=== PATIENT | female | born 1990 | race African-American/Black ===

== ENCOUNTER → 2023-09-06 09:41 | Outpatient (REF) | payer OTHER, SELFPAY ==
[2023-09-06 11:03] LABS: Hematocrit 33.4 % (37.0-47.0); Hemoglobin 10.5 g/dL (12.0-16.0); Mean Corp Hgb Conc. 31.4 g/dL (33.0-37.0); Mean Corpuscular Hgb 20.5 pg (27.0-31.0); Mean Corpuscular Volume 65.1 fL (81.0-99.0); Red Blood Cell Count 5.13 10^6/uL (4.20-5.40); Red Cell Dist. Width 17.2 % (11.5-14.5); White Blood Cell Count 4.9 10^3/uL (4.8-10.8)
[2023-09-06 11:20] LABS: ALT (SGPT) 19 U/L (0-35); AST (SGOT) 25 U/L (14-36); Albumin 4.4 g/dl (3.5-5.0); Alkaline Phosphatase 59 U/L (38-126); Blood Urea Nitrogen 9 mg/dl (7-17); Calcium 9.2 mg/dl (8.4-10.2); Carbon Dioxide 22 mmol/L (22-30); Chloride 108 mmol/L (98-107); Glucose 83 mg/dl (70-99); Potassium 4.3 mmol/L (3.5-5.1); Sodium 137 mmol/L (135-145); Total Bilirubin 0.5 mg/dl (0.2-1.3); Total Protein 8.1 g/dl (6.3-8.2); eGFR > 60.00
[2023-09-06 11:50] LABS: TSH Reflex To Free T4 1.01 uIU/ml (0.47-4.68)
[2023-09-06 12:08] LABS: Vitamin B12 659 pg/ml (239-931)
[2023-09-08 16:28] LABS: Quantiferon Mitogen minus NIL 8.89 IU/mL; Quantiferon NIL 0.05 IU/mL; Quantiferon Plus TB1 minus NIL 1.27 IU/mL (0.00-0.34); Quantiferon Plus TB2 minus NIL 0.78 IU/mL (0.00-0.34); Quantiferon TB Gold Plus Positive (Negative)
== END ==
LOC: CLINIC 09:41
PROVIDERS: ATTENDING PHYSICIAN Nurse Practitioner Adult Health
DX: Z00.00 Encounter for general adult medical examination without abnormal findings (principal)
CPT/HCPCS: 36415; 80053; 82607; 84443; 85027; 86480

== ENCOUNTER → 2023-09-13 09:51 | Outpatient (REF) | payer OTHER, SELFPAY | LOC: CLINIC 09:51 | PROVIDERS: ATTENDING PHYSICIAN Nurse Practitioner Adult Health | DX: R76.12 Nonspecific reaction to cell mediated immunity measurement of gamma interferon antigen response without active tuberculosis (principal) | CPT/HCPCS: 71046 ==

== ENCOUNTER 2025-05-28 11:10 | Emergency (ER) | payer OTHER, SELFPAY ==
[2025-05-28 11:19] VITALS: BP 120/89
--- NOTE | 2025-05-28 12:27 | ED.GENMED ---
History of Present Illness
<Radha Thapa PA-C - Last Filed: 05/28/25 20:15>
General
Chief Complaint: Dizziness
Source: patient
Exam Limitations: none
Time Seen by Provider: 05/28/25 12:13
History of Present Illness
History of Present Illness:
34yoF with no significant past medical history presenting with her for evaluation of dizziness. Symptoms began about 3 days ago. She drink cocktails and beer for the which is unusual for her. She developed dizziness
Wednesday night which she describes as feeling like the room is spinning. Symptoms are worse with standing. She also reports nausea but has not vomited. She noticed that both of her legs and face appeared swollen. She reports a pounding in her left
ear which sounds like drums. She denies any chest pain or shortness of breath.
Phy Exam
<Radha Thapa PA-C - Last Filed: 05/28/25 20:15>
General Physical Exam
General Presentation: well appearing and no apparent distress
General age: appears stated age
General Skin: warm and dry
General Habitus: normal
General Mental: alert
ENT Exam
ENT Exam: TM's normal and normocephalic
Eye Exam
Eye Exam: PERRL, EOMI and conjunctiva normal
Cardiovascular Exam
Cardiovascular Exam: regular rate/rhythm, no murmur and other (1+ pitting edema in bilateral lower extremities)
Pulmonary Exam
Pulmonary Exam: lungs clear, no respiratory distress, no rales, no crackles, no rhonchi and no wheezing
Neurological Exam
Neurological Exam: alert
[place] Coma Scale
Eye Opening: Spontaneous
Verbal Response: Oriented
Motor Response: Obeys Commands
GCS Total Score: 15
Skin Exam
Skin Exam: normal color and warm/dry
Psychiatric Exam
Psychiatric Exam: normal mood/affect
Course
<Radha Thapa PA-C - Last Filed: 05/28/25 20:15>
Orders/Labs/Results
Orders:
Orders
05/28/25 12:25
Venous Doppler Lwr Ext Bilat [US Periph Venous LOWER Ext Gael] Urgent
Comment:
Reason For Exam: bilateral leg swelling
05/28/25 12:26
Electrocardiogram (*1) Urgent
Reason for Study: Vertigo / Dizzy
CT Head W/o Iv Contrast Urgent
Comment:
Reason For Exam: dizziness
EKG- Treatment ONCE
Test Result ONCE
CR Chest - 2 Views Urgent
Comment:
Reason For Exam: bilateral leg swelling
05/28/25 12:49
Complete Blood Count/With Diff Urgent
Comprehensive Metabolic Panel Urgent
HCG, Serum Qualitative Screen Urgent
NT-proBNP Urgent
Troponin I Urgent
05/28/25 15:13
Urinalysis Reflex To Culture Urgent
Date Specimen was Collected: 05/28/25
Time Specimen was Collected: 14:45
Urine Microscopic Reflex Cult Urgent
Urine Culture Urgent
ZAMZAM Source: U
Specimen Description:
Obtained by: Random
Date Specimen was Collected: 05/28/25
Time Specimen was Collected: 14:45
05/28/25 15:22
Echo 2D MMode Color/Doppler Urgent
Reason for Study: cardiomegaly, leg swelling
Cardiology Consult: Ria Segura
Abnormal Lab Results
05/28/25 05/28/25
12:49 15:13
Hgb 8.8 L g/dL
(12.0-16.0)
Hct 29.2 L %
(37.0-47.0)
MCV 61.7 L fL
(81.0-99.0)
MCH 18.6 L pg
(27.0-31.0)
MCHC 30.1 L g/dL
(33.0-37.0)
RDW 17.6 H %
(11.5-14.5)
Absolute Monos (auto) 1.0 H 10^3/uL
(0.1-0.6)
Monocytes % 15.3 H %
(1.7-9.3)
Creatinine 0.5 L mg/dL
(0.6-1.0)
Urine Ketones 2+ A
(Negative)
Urine Nitrite (Reflex) Positive A
(Negative)
Leukocyte Esterase Rfl 1+ A
(Negative)
Urine RBC 3-6 A /HPF
(0-2)
Urine WBC (Reflex) 16-20 A /HPF
(0-5)
Urine Bacteria (Reflex) Moderate A
(Negative)
Urine Albumin (Reflex) 1+ A
(Neg - Trace)
05/28/25 12:49
05/28/25 12:49
Vital Signs
Initial and Last Documented VS:
Initial Vital Signs
Temp Pulse Resp BP Pulse Ox
98.4 F 102 18 120/89 99
05/28/25 11:19 05/28/25 11:19 05/28/25 11:19 05/28/25 11:19 05/28/25 11:19
Last Documented Vital Signs
Temp Pulse Resp BP Pulse Ox
98.4 F 102 18 119/62 100
05/28/25 11:19 05/28/25 11:19 05/28/25 11:19 05/28/25 14:25 05/28/25 14:45
<Hollis Black, DO - Last Filed: 05/28/25 15:01>
Orders/Labs/Results
Orders:
Orders
05/28/25 12:25
Venous Doppler Lwr Ext Bilat [US Periph Venous LOWER Ext Gael] Urgent
Comment:
Reason For Exam: bilateral leg swelling
05/28/25 12:26
Electrocardiogram (*1) Urgent
Reason for Study: Vertigo / Dizzy
CT Head W/o Iv Contrast Urgent
Comment:
Reason For Exam: dizziness
EKG- Treatment ONCE
Test Result ONCE
CR Chest - 2 Views Urgent
Comment:
Reason For Exam: bilateral leg swelling
05/28/25 12:49
Complete Blood Count/With Diff Urgent
Comprehensive Metabolic Panel Urgent
HCG, Serum Qualitative Screen Urgent
NT-proBNP Urgent
Troponin I Urgent
05/28/25 15:13
Urinalysis Reflex To Culture Urgent
Date Specimen was Collected: 05/28/25
Time Specimen was Collected: 14:45
Urine Microscopic Reflex Cult Urgent
Urine Culture Urgent
ZAMZAM Source: U
Specimen Description:
Obtained by: Random
Date Specimen was Collected: 05/28/25
Time Specimen was Collected: 14:45
05/28/25 15:22
Echo 2D MMode Color/Doppler Urgent
Reason for Study: cardiomegaly, leg swelling
Cardiology Consult: Ria Segura
Abnormal Lab Results
05/28/25 05/28/25
12:49 15:13
Hgb 8.8 L g/dL
(12.0-16.0)
Hct 29.2 L %
(37.0-47.0)
MCV 61.7 L fL
(81.0-99.0)
MCH 18.6 L pg
(27.0-31.0)
MCHC 30.1 L g/dL
(33.0-37.0)
RDW 17.6 H %
(11.5-14.5)
Absolute Monos (auto) 1.0 H 10^3/uL
(0.1-0.6)
Monocytes % 15.3 H %
(1.7-9.3)
Creatinine 0.5 L mg/dL
(0.6-1.0)
Urine Ketones 2+ A
(Negative)
Urine Nitrite (Reflex) Positive A
(Negative)
Leukocyte Esterase Rfl 1+ A
(Negative)
Urine RBC 3-6 A /HPF
(0-2)
Urine WBC (Reflex) 16-20 A /HPF
(0-5)
Urine Bacteria (Reflex) Moderate A
(Negative)
Urine Albumin (Reflex) 1+ A
(Neg - Trace)
05/28/25 12:49
05/28/25 12:49
Vital Signs
Initial and Last Documented VS:
Initial Vital Signs
Temp Pulse Resp BP Pulse Ox
98.4 F 102 18 120/89 99
05/28/25 11:19 05/28/25 11:19 05/28/25 11:19 05/28/25 11:19 05/28/25 11:19
Last Documented Vital Signs
Temp Pulse Resp BP Pulse Ox
98.4 F 102 18 119/62 100
05/28/25 11:19 05/28/25 11:19 05/28/25 11:19 05/28/25 14:25 05/28/25 14:45
<Radha Thapa PA-C - Last Filed: 05/28/25 20:15>
MDM/Problems Addressed
Differential Diagnosis Includes:
34yoF here with dizziness, nausea, and leg swelling for the past few days. HR 102. Remainder of vitals normal. There is 1+ pitting edema in bilateral lower extremities. Remainder of exam is reassuring. Differential diagnosis includes but is not
limited to: BPPV, vestibular neuritis, DVT, less likely CHF
Initial ED plan: Check cardiac labs, HCG, EKG, CT head, bilateral venous duplex, and CXR.
<Radha Thapa PA-C - Last Filed: 05/28/25 20:15>
*Pulse Oximetry
SaO2: 99
Oxygen Mode of Delivery: Room air
Patient hypoxic: no
*EKG
Interpreted by ED Provider?: Yes
EKG Intrepretation Date: 05/28/25
Heart Rate: 100
Rate: normal
Rhythm: sinus
[place]: normal axis
QRS Pattern: low voltage
Ischemia: no ischemia
*Critical Care Note
Total Time (30-74mins, 75-104mins- exclusive of procedures): Not Applicable
<Radha Thapa PA-C - Last Filed: 05/28/25 20:15>
Update Note
Update Note:
Hemoglobin 8.8. She denies hematochezia or melena but does endorse heavy menses. No active vaginal bleeding currently. CXR shows cardiomegaly without pulmonary edema. BNP within normal limits. EKG shows NSR without ischemic changes and troponin
normal. UA added to evaluate for nephrotic syndrome but only 1+ albumin present making this unlikely. UA with 16-20 WBCs and moderate bacteria although she has no urinary symptoms and >30/LPF squamous epithelial cells noted suggesting contaminated
sample. Patient also evaluated by Dr. Black. Echocardiogram ordered which came back normal with EF of 67%. No pericardial effusion present. Patient stable for discharge. She was advised to f/u with PCP and ED return precautions reviewed.
ED Attending Note
<Radha Thapa PA-C - Last Filed: 05/28/25 20:15>
-
Portions of this chart may have been created with voice recognition software.� Occasional wrong word or��sound alike� substitutions may have occurred due to the inherent limitations of voice recognition software.
<Hollis Black, DO - Last Filed: 05/28/25 15:01>
ED Attending Note
Patient seen and examined by attending physician: Yes
I performed the substantive portion of visit, reviewed & personally made and approve the management plan that is documented in note by myself or [place].: Yes
ED Attending Note:
I have seen and evaluated the patient with a [id number] encounter. I have spoken to the advance practicer provider and involved in the medical history, the physical exam, medical decision making.
Evaluation and management service: agree unless noted differently below.
Results interpretation: agree unless noted differently below.
Focused HPI: 34-year-old female presenting for evaluation of generalized weakness and fatigue. Patient was initially complaining of dizziness. She denies any preceding viral syndrome
Physical exam: Sitting bed comfortably. No acute distress. Bilateral mild pitting edema noted to both lower
Medical Decision Making: Chest x-ray clear but does show evidence of cardiomegaly. Given the cardiomegaly and the pitting edema, will obtain echocardiogram and ultimately have cardiology follow-up in the outpatient setting. We discussed possibly
postviral cardiomyopathy versus autoimmune disease. Will obtain urinalysis and for any evidence of nephrotic syndrome
Discharge Plan
Departure
Patient Disposition: Home (Routine Discharge)
Date of Disposition: 05/28/25
Time of Disposition: 17:04
Patient with high blood pressure during this ER visit?: No
Discharge Problem:
Bilateral edema of lower extremity, Dizziness, Anemia
Instructions: Dizziness in adults - ED (DC)
Referrals:
[facility] [Provider Group]
[facility] [Outside]
[facility],* [Family Provider, Internal Medicine]
Ria Segura, DO [Active, Cardiology]
Activity Restrictions/Additional Instructions:
Your labs today show anemia. You should start taking a daily multivitamin with iron.
Please follow-up with a family doctor and cardiology. Return to the ER with any new or worsening symptoms.
Interventions
Interventions:
*Risk Screen - Suicide Last Done: 05/28/25 11:19
*General Assessment Last Done: 05/28/25 11:19
*Neglect/Abuse Screening Last Done: 05/28/25 11:19
[facility] Fall Risk Assessment Tool Last Done: 05/28/25 12:26
ED Swallowing Screen Last Done: 05/28/25 12:00
Discharge Date and Time
Print Language: ROMANIAN
[2025-05-28 13:13] LABS: Hematocrit 29.2 % (37.0-47.0); Hemoglobin 8.8 g/dL (12.0-16.0); Mean Corp Hgb Conc. 30.1 g/dL (33.0-37.0); Mean Corpuscular Volume 61.7 fL (81.0-99.0); Nucleated Red Blood Cells % 0 %; Red Cell Dist. Width 17.6 % (11.5-14.5)
[2025-05-28 13:15] LABS: HCG, Serum Qualitative Screen Negative
[2025-05-28 13:20] LABS: ALT (SGPT) 31 U/L (0-35); AST (SGOT) 31 U/L (14-36); Albumin 4.3 g/dl (3.5-5.0); Alkaline Phosphatase 65 U/L (38-126); Blood Urea Nitrogen 7 mg/dl (7-17); Calcium 9.2 mg/dl (8.4-10.2); Carbon Dioxide 26 mmol/L (22-30); Chloride 106 mmol/L (98-107); Glucose 84 mg/dl (70-99); Platelet Count 264 10^3/uL (130-400); Potassium 4.2 mmol/L (3.5-5.1); Sodium 137 mmol/L (135-145); Total Protein 8.1 g/dl (6.3-8.2); eGFR > 60.00
[2025-05-28 13:32] LABS: Troponin I 0.018 ng/ml
[2025-05-28 14:25] VITALS: BP 119/62
[2025-05-28 15:20] LABS: Urine Character Slightly Cloudy (Clear)
[2025-05-28 15:24] LABS: Urine Squamous Cell >30 /LPF (Few)
[2025-05-28 15:25] LABS: Urine White Cell 16-20 /HPF (0-5)
== END 2025-05-28 17:20 | disposition home or self-care (01) ==
LOC: EMR 11:10
PROVIDERS: Physician Assistant; EMERGENCY PHYSICIAN Student in an Organized Health Care Education/Training Program
DX: R60.0 Localized edema (principal); R42 Dizziness and giddiness; D64.9 Anemia, unspecified
CPT/HCPCS: 99284; 70450; 71046; 80053; 81003; 81015; 83880; 84484; 84703; 85025; 87077; 87086; 87186; 93005; 93306; 93970